=== PATIENT | male | born 1980 | race Caucasian/White ===

== ENCOUNTER 2018-02-14 12:19 | Emergency (ER) | payer MEDICARE ==
[~2018-02-14] VITALS: Ht 185.4 cm; Wt 81.8 kg
[2018-02-14 14:50] VITALS: BP 111/66
== END 2018-02-14 15:25 | disposition home or self-care (01) ==
LOC: ER 12:19
DX: R56.9 Unspecified convulsions (principal); R07.9 Chest pain, unspecified; R51 Headache; F15.90 Other stimulant use, unspecified, uncomplicated; F12.90 Cannabis use, unspecified, uncomplicated; Z88.0 Allergy status to penicillin; Z88.8 Allergy status to other drugs, medicaments and biological substances
CPT/HCPCS: 99283

== ENCOUNTER 2020-01-29 05:44 | Day surgery (SDC) | payer OTHER ==
[~2020-01-29] VITALS: Ht 198.1 cm; Wt 95.3 kg
[2020-01-29] VITALS (7 sets, daily range): BP systolic 88–115; BP diastolic 49–73
[~2020-01-29 05:44] MED LIST: OMEP-50 PO; clindamycin-Cleocin 900mg/D5W 50 ML IV ONE; famotidine 20mg tablet PO ONE; ringers solution, lacted 1,000 ML IV SCH; vancomycin 1,500 MG in NS 300ml IV soln IV ONE
--- NOTE | 2020-01-29 06:00 | NUR ---
VERBAL COVID SCREEN NEGATIVE , PT DENIES ANY SYPTOMS OF COVID. A FEBRILE, DENIES COUGH, SOB, CHILLS, GI UPSET, HEADACHE, N/V NO LOSS OF SMELL OR TASTE. STATES HE HAS BEEN IN QUARANTINE. MD AWARE PT HAD NO COVID TEST, OK TO PROCEED W/ SURGERY.
[2020-01-29] MEDS ORDERED: LIDOcaine 1% (10mg/ml) 2ml vial ONE (06:21)
[2020-01-29 06:44] LABS: BASOPHILS % (AUTO) 0.9 % (0-1); EOSINOPHILS # (AUTO) 0.3 X10'3 (0-0.9); EOSINOPHILS % (AUTO) 5.6 % (0-6); HEMATOCRIT 37.9 % (42.0-52.0); HEMOGLOBIN 12.6 g/dl (14.0-17.9); LYMPHOCYTES # (AUTO) 2.1 X10'3 (1.1-4.8); LYMPHOCYTES % (AUTO) 43.1 % (21-51); MEAN CORPUSCULAR HEMOGLOBIN 30.7 PG (27.0-31.0); MEAN CORPUSCULAR HGB CONC 33.3 g/dL (33.0-36.5); MEAN CORPUSCULAR VOLUME 92.1 FL (78-98); MEAN PLATELET VOLUME 7.6 FL (7.4-10.4); MONOCYTES # (AUTO) 0.5 X10'3 (0-0.9); MONOCYTES % (AUTO) 9.8 % (2-12); NEUTROPHILS % (AUTO) 40.6 % (42-75); PLATELET COUNT 253 X10'3 (140-440); RED BLOOD COUNT 4.12 X10'6 (4.70-6.10); RED CELL DISTRIBUTION WIDTH 14.5 % (11.5-14.5); WHITE BLOOD COUNT 4.9 X10'3 (4.5-11.0)
[2020-01-29] MEDS ORDERED: ceFAZolin 1000mg inj ONE (07:10)
[2020-01-29] MEDS ORDERED: clindamycin phosphate 150mg/ml inj. ONE (07:30)
[2020-01-29] MEDS ORDERED: fentaNYL/PF 50MCG/1 ML 2ML syringe ONE ×2 (07:40→09:46)
[2020-01-29] MEDS ORDERED: MIDAZolam 5mg/5ml vial ONE (07:40)
[2020-01-29] MEDS ORDERED: propofol inj 20 ML IV ONE (07:42)
[2020-01-29] MEDS ORDERED: ROPIVAcaine 0.5% (5mg/ml) 30ml vial ONE (07:42)
[2020-01-29] MEDS ORDERED: sevoflurane 250ml liquid IH ONE (07:42)
[2020-01-29] MEDS ORDERED: LIDOcaine 2% (20mg/ml) 5ml vial ONE (07:42)
[2020-01-29] MEDS ORDERED: vancomycin 1,000mg inj ONE (08:41)
[2020-01-29] MEDS ORDERED: ringers solution, lacted 1,000 ML IV SCH (09:15)
[2020-01-29] MEDS ORDERED: morphine 2 MG/ML inj. syringe IV PRN (09:15)
[2020-01-29] MEDS ORDERED: proCHLORperazine 10 MG/2 ml inj IV PRN (09:15)
[2020-01-29] MEDS ORDERED: morphine 4 MG/ML inj SYRINge IV PRN (09:15)
[2020-01-29] MEDS ORDERED: ondansetron/PF 4mg/2ml inj IV PRN (09:15)
[2020-01-29] MEDS ORDERED: meperidine/PF 25mg/ml syringe IV PRN ×3 (09:15)
[2020-01-29] MEDS ORDERED: phenylephrine 10mg/ml inj. ONE (09:23)
[2020-01-29] MEDS ORDERED: ondansetron/PF 4mg/2ml inj ONE (09:23)
[2020-01-29] MEDS ORDERED: ePHEDrine 50MG/ML INJ. ONE (09:23)
[2020-01-29] MEDS ORDERED: glycopyrrolate 0.2mg/ml inj ONE (09:24)
[2020-01-29] MEDS ORDERED: BUPIVAcaine/PF 2.5 mg/ml (0.25%) 30ml vial ONE (09:57)
[2020-01-29] MEDS ORDERED: acetaminophen 1,000mg/100ml IV 100 ML IV ONE (10:03)
--- NOTE | 2020-01-29 10:19 | NUR ---
Received from OR via [facility] , accompanied by Anesthesiologist TUAN and report given by Anesthesiolgist. PATIENT WITH 10L MASK ON WITH 100% SATURATIONS. VSS. RIGHT ANTERIOR SHOULDER DRESSING IS CDI. SLING PRESENT TO RIGHT UE AND HAS A + RADIAL PULSE PRESENT. + CAP REFILL. Addendum: 01/29/20 at 1034 by Elian Johnson RN, RN Amended: Links added.
--- NOTE | 2020-01-29 11:19 | NUR ---
PATIENT HAS VERBALIZED UNDERSTANDING, OPPORTUNITY TO ASK QUESTIONS GIVEN AND PATIENT COMFORTABLE WITH DC. IV TAKEN OUT WITHOUT COMPLICATION. PATIENT HAS MET ALL DC CRITERIA FOR DC HOME. I HAVE REVIEWED D/C INSTRUCTIONS WITH OUT VIA WHEELCHAIR WHERE PATIENT WAS TAKEN HOME WITH ALL BELONGINGS. FAMILY GAVE PATIENT TRANSPORT HOME. Addendum: 01/29/20 at 1130 by Elian Johnson RN, RN Amended: Links added.
== END 2020-01-29 11:25 | disposition home or self-care (01) ==
LOC: PAS 05:44 → EEVIPCON 07:30 → PAS 11:25
PROVIDERS: ATTEND Orthopaedic Surgery
DX: S42.001A Fracture of unspecified part of right clavicle, initial encounter for closed fracture (principal); G89.18 Other acute postprocedural pain; X58.XXXA Exposure to other specified factors, initial encounter; Y93.89 Activity, other specified; Y92.89 Other specified places as the place of occurrence of the external cause; Y99.8 Other external cause status; G40.909 Epilepsy, unspecified, not intractable, without status epilepticus; F84.0 Autistic disorder; Z88.0 Allergy status to penicillin; Z88.8 Allergy status to other drugs, medicaments and biological substances; Z79.899 Other long term (current) drug therapy
CPT/HCPCS: 23515; 36415; 64415; 76937; 76942; 85025; C1713; J0131; J0690; J2001; J2250; J2370; J2405; J2704; J3010; J3370; J3490; J7040; A4215; A4565; A4618; A7000; J2795; J7120